=== PATIENT | female | born 1950 | race Caucasian/White ===

== ENCOUNTER → 2018-01-13 17:59 | Outpatient (CLI) | payer OTHER, SELFPAY ==
--- NOTE | 2018-01-13 | BRBX_PTH ---
PATIENT: VALE HIRSCH LOC: [facility] U#:[id number] AGE/SX: 74/F ROOM: RE01/13/[address]: Dr. Lakisha Bose MD : 1950 BED: DIS: SPEC #: [id number] RECD: 01/13/18 17:19 STATUS: CB RE #: [id number] RUBÉN: 01/13/18 00:[address]: Lakisha Bose DEPT: SURGICAL PATHOLOGY RECD BY: Zane Gleason ENTERED: 01/16/18 11:26 SP TYPE: BREAST BX OTHR DR: Dr. Gonsalo Hull MD Tissues: Left breast, NOS Procedures: Surgery Specimen Level IV HEADER OPERATION: Ultrasound-guided mammotome left breast PRE-OP DIAGNOSIS: Abnormal mammogram TISSUE SUBMITTED: Left breast biopsy MICROSCOPIC DIAGNOSIS Left breast, ultrasound-guided mammotome core biopsy: Fibrocystic changes. Negative for atypia or malignancy. SJ:karlie 01/17/18 COMMENT Correlation with clinical, radiologic findings and appropriate follow up are necessary. MICROSCOPIC DESCRIPTION Slides are reviewed. GROSS DESCRIPTION Received is one container labeled with the patient's name and not further designated. The specimen consists of multiple fragments of gandhi-yellow fibroadipose tissue mixed with blood clot that in aggregate measure 2.5 x 0.5 x 0.1 cm. The entire specimen is submitted in one cassette. / FREDA:karlie 01/16/18 TC:5 CPT: 39262
== END ==
PROVIDERS: Visit Provider Surgery
DX: R92.8 Other abnormal and inconclusive findings on diagnostic imaging of breast (principal)
CPT/HCPCS: 88305

== ENCOUNTER 2025-01-22 17:19 | Outpatient (CLI) | payer MEDICARE, SELFPAY ==
--- NOTE | 2025-01-22 17:28 | RAD_ITS ---
PROCEDURE: FOOT MIN 3 VIEWS 01/22/2025 REASON FOR EXAM: PAIN TECHNIQUE: FOOT MIN 3 VIEWS COMPARISON: No FINDINGS: Status post 1st metatarsal base osteotomy with complete bony healing. 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 Small plantar calcaneal spur. 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 Advise correlation. Reading [facility]
== END 2025-01-22 23:59 | disposition home or self-care (01) ==
PROVIDERS: Referring Provider Podiatrist; Visit Provider Podiatrist
DX: S96.212A Strain of intrinsic muscle and tendon at ankle and foot level, left foot, initial encounter (principal); X58.XXXA Exposure to other specified factors, initial encounter
CPT/HCPCS: 73630